=== PATIENT | female | born 1990 | race Caucasian/White ===

== ENCOUNTER 2016-08-06 07:21 | Emergency (ER) | payer SELFPAY ==
[2014-08-12 10:15] VITALS: BMI 23.6
[~2016-08-06 07:21] MED LIST: IBUPROFEN600 MG PO; PERCOCET 5-3251 TAB PO; PRENAVITE1 TAB PO
== END 2016-08-06 08:25 | disposition home or self-care (01) ==
LOC: D.ER 07:21
DX: J02.9 Acute pharyngitis, unspecified (principal)

== ENCOUNTER 2017-03-09 21:41 | Emergency (ER) | payer SELFPAY ==
[2014-08-12 10:15] VITALS: BMI 23.6
== END 2017-03-09 22:21 | disposition home or self-care (01) ==
LOC: D.ER 21:41
DX: K08.89 Other specified disorders of teeth and supporting structures (principal); K04.7 Periapical abscess without sinus

== ENCOUNTER 2017-04-29 12:50 | Emergency (ER) | payer SELFPAY ==
[2014-08-12 10:15] VITALS: BMI 23.6
[2017-04-29 15:04] LABS: UDS - AMPHET NEGATIVE QUAL (NEGATIVE); UDS - BARB NEGATIVE QUAL (NEGATIVE); UDS - BENZO NEGATIVE QUAL (NEGATIVE); UDS - COCAINE NEGATIVE QUAL (NEGATIVE); UDS - OPIATE POSITIVE QUAL (NEGATIVE); UDS - PCP NEGATIVE QUAL (NEGATIVE); UDS - THC POSITIVE QUAL (NEGATIVE)
== END 2017-04-29 16:26 | disposition home or self-care (01) ==
LOC: D.ER 12:50
PROVIDERS: Physician Assistant
DX: R11.2 Nausea with vomiting, unspecified (principal); F10.129 Alcohol abuse with intoxication, unspecified; F17.200 Nicotine dependence, unspecified, uncomplicated

== ENCOUNTER 2017-08-07 12:04 | Emergency (ER) | payer SELFPAY ==
[2014-08-12 10:15] VITALS: BMI 23.6
== END 2017-08-07 14:52 | disposition home or self-care (01) ==
LOC: D.ER 12:04
DX: S93.401A Sprain of unspecified ligament of right ankle, initial encounter (principal); W03.XXXA Other fall on same level due to collision with another person, initial encounter; Y93.89 Activity, other specified; Y92.019 Unspecified place in single-family (private) house as the place of occurrence of the external cause; F17.200 Nicotine dependence, unspecified, uncomplicated

== ENCOUNTER 2017-10-07 22:24 | Emergency (ER) | payer SELFPAY ==
[~2017-10-07] VITALS: Ht 160 cm; Wt 50.0 kg
[2017-10-07 22:53] VITALS: Ht 160 cm; Wt 50.0 kg
[2017-10-07 23:58] LABS: APPEARANCE CLEAR (CLEAR); BILIRUBIN NEGATIVE (NEGATIVE); COLOR YELLOW (YELLOW); GLUCOSE NEGATIVE (NEGATIVE); KETONE NEGATIVE (NEGATIVE); NITRITE NEGATIVE (NEGATIVE); PROTEIN NEGATIVE (NEGATIVE); UROBILINOGEN NORMAL (NORMAL)
[2017-10-08 00:04] LABS: HCG URINE NEGATIVE (NEGATIVE)
[2017-10-08] MEDS ORDERED: TORADOL10 MG PO (02:57)
[2017-10-08 03:02] VITALS: BP 122/78
== END 2017-10-08 03:04 | disposition home or self-care (01) ==
LOC: D.ER 22:24
PROVIDERS: Family Medicine
DX: S16.1XXA Strain of muscle, fascia and tendon at neck level, initial encounter (principal); Y93.39 Activity, other involving climbing, rappelling and jumping off; Y93.89 Activity, other specified; Y92.89 Other specified places as the place of occurrence of the external cause; S70.02XA Contusion of left hip, initial encounter; S70.12XA Contusion of left thigh, initial encounter; S29.012A Strain of muscle and tendon of back wall of thorax, initial encounter; F17.200 Nicotine dependence, unspecified, uncomplicated

== ENCOUNTER 2019-01-22 08:19 | Emergency (ER) | payer SELFPAY ==
[~2019-01-22] VITALS: Ht 160 cm; Wt 50.9 kg
[~2019-01-22 08:19] MED LIST changes: +TORADOL10 MG PO
[2019-01-22 08:23] VITALS: Ht 160 cm; Wt 50.9 kg
[2019-01-22 08:45] LABS: BASOPHILS 0.2 % (0-2); EOSINOPHILS 0.4 % (0-7); HEMATOCRIT 38.5 % (36.0-48.0); HEMOGLOBIN 12.2 g/dL (12-16); IMMATURE GRANULOCYTES 0.2 % (0-5); LYMPHOCYTES 10.2 % (15-50); MCH 27.7 pg (26.0-34.0); MCHC 31.7 g/dL (31.0-37.0); MCV 87.5 fL (80.0-100.0); MEAN PLATELET VOLUME 9.6 fL (7.4-10.4); PLATELET COUNT 301 10x3/uL (130-400); RDW 15.5 % (11.5-14.5); WBC 12.1 10x3/uL (4.8-10.8)
[2019-01-22] MEDS ORDERED: ACETAMINOPHEN500 M1 PO (08:47)
[2019-01-22] MEDS ORDERED: IBUPROFEN800 MG PO (08:47)
[2019-01-22] MEDS ORDERED: CYCLOBENZAPRINE10 MG PO (08:47)
[2019-01-22] MEDS ORDERED: ZOFRAN ODT4 MG/UDTAB PO (08:47)
[2019-01-22] MEDS ORDERED: KEFLEX500 MG PO (08:47)
[2019-01-22 09:00] LABS: ALBUMIN 3.8 g/dL (3.4-5.0); ALKALINE PHOSPHATASE 74 U/L (46-116); ALT (SGPT) 14 U/L (10-68); BILIRUBIN - TOTAL 0.38 mg/dL (0.2-1.3); CALC OSMOLALITY 271 mosm/kg (275-300); CALCIUM 8.5 mg/dL (8.5-10.1); CHLORIDE - SERUM 102 mmol/L (98-107); CREATININE - SERUM 0.8 mg/dL (0.6-1.3); GLUCOSE 104 mg/dL (74-106); POTASSIUM - SERUM 3.5 mmol/L (3.5-5.1); PROTEIN - SERUM 7.4 g/dL (6.4-8.2); SODIUM 137 mmol/L (136-145); UREA NITROGEN 8 mg/dL (7-18); eGFR NON AFRICAN AMERICAN > 90 mL/min (90-120)
[2019-01-22 09:25] VITALS: BP 129/77
== END 2019-01-22 09:22 | disposition home or self-care (01) ==
LOC: D.ER 08:19
PROVIDERS: Family Medicine
DX: K02.9 Dental caries, unspecified (principal); K04.7 Periapical abscess without sinus; K05.10 Chronic gingivitis, plaque induced

== ENCOUNTER 2019-02-15 10:34 | Emergency (ER) | payer SELFPAY ==
[~2019-02-15] VITALS: Ht 160 cm; Wt 68.2 kg
[~2019-02-15 10:34] MED LIST changes: +ACETAMINOPHEN500 M1 PO; +CYCLOBENZAPRINE10 MG PO; +IBUPROFEN800 MG PO; +KEFLEX500 MG PO; +ZOFRAN ODT4 MG/UDTAB PO
[2019-02-15 10:40] VITALS: BP 111/74; Ht 160 cm; Wt 68.2 kg
[2019-02-15] MEDS ORDERED: IBUPROFEN800 MG PO (12:23)
[2019-02-15] MEDS ORDERED: CYCLOBENZAPRINE10 MG PO (12:23)
[2019-02-15] MEDS ORDERED: ACETAMINOPHEN500 M1 PO (12:23)
== END 2019-02-15 13:42 | disposition home or self-care (01) ==
LOC: D.ER 10:34
DX: M23.91 Unspecified internal derangement of right knee (principal); X50.1XXA Overexertion from prolonged static or awkward postures, initial encounter

== ENCOUNTER 2019-09-14 22:08 | Emergency (ER) | payer SELFPAY ==
[~2019-09-14] VITALS: Ht 160 cm; Wt 51.3 kg
[~2019-09-14 22:08] MED LIST changes: +XOFLUZA40 MG PO
[2019-09-14 22:15] VITALS: Ht 160 cm; Wt 51.3 kg
[2019-09-14 22:36] LABS: BASOPHILS 0.5 % (0-2); EOSINOPHILS 0.5 % (0-7); HEMATOCRIT 39.5 % (36.0-48.0); HEMOGLOBIN 12.2 g/dL (12-16); IMMATURE GRANULOCYTES 0.1 % (0-5); LYMPHOCYTES 21.9 % (15-50); MCH 25.8 pg (26.0-34.0); MCHC 30.9 g/dL (31.0-37.0); MCV 83.5 fL (80.0-100.0); MONOCYTES 10.5 % (2-11); NEUTROPHILS 66.5 % (40-80); PLATELET COUNT 315 10x3/uL (130-400); RBC 4.73 10x6/uL (4.00-5.40); RDW 16.4 % (11.5-14.5)
[2019-09-14 22:43] LABS: HCG URINE NEGATIVE (NEGATIVE)
[2019-09-14 22:44] LABS: ANION GAP 11.8 mmol/L (8-16); BACTERIA FEW /hpf (NEGATIVE); BILIRUBIN NEGATIVE (NEGATIVE); CARBON DIOXIDE 27.4 mmol/L (21.0-32.0); GLUCOSE NEGATIVE (NEGATIVE); KETONE NEGATIVE (NEGATIVE); NITRITE NEGATIVE (NEGATIVE); POTASSIUM - SERUM 3.2 mmol/L (3.5-5.1); RED CELLS - URINE 0-5 /hpf (0-5); SPECIFIC GRAVITY 1.015 (1.005-1.020); UROBILINOGEN NORMAL (NORMAL); WHITE CELLS - URINE 0-5 /hpf (NEGATIVE)
[2019-09-14 22:51] LABS: ALBUMIN 4.3 g/dL (3.4-5.0); BILIRUBIN - TOTAL 0.3 mg/dL (0.2-1.3); PROTEIN - SERUM 8.3 g/dL (6.4-8.2)
[2019-09-14] MEDS ORDERED: ZOFRAN ODT4 MG/UDTAB PO (23:31)
[2019-09-14] MEDS ORDERED: VOLTAREN75 MG PO (23:31)
[2019-09-14] MEDS ORDERED: AUGMENTIN 875-11 TAB PO (23:55)
[2019-09-15 00:05] VITALS: BP 132/85
== END 2019-09-15 00:09 | disposition home or self-care (01) ==
LOC: D.ER 22:08
PROVIDERS: Family Medicine
DX: R51 Headache (principal); Y04.1XXA Assault by human bite, initial encounter; Y93.9 Activity, unspecified; Y92.9 Unspecified place or not applicable; J45.909 Unspecified asthma, uncomplicated; Z72.0 Tobacco use; R11.2 Nausea with vomiting, unspecified

== ENCOUNTER 2019-11-30 10:38 | Emergency (ER) | payer SELFPAY ==
[~2019-11-30] VITALS: Ht 160 cm; Wt 52.3 kg
[~2019-11-30 10:38] MED LIST changes: +AUGMENTIN 875-11 TAB PO; +VOLTAREN75 MG PO
[2019-11-30 10:41] VITALS: Ht 160 cm; Wt 52.3 kg
[2019-11-30 10:59] LABS: BASOPHILS 0.5 % (0-2); EOSINOPHILS 0.9 % (0-7); HEMATOCRIT 40.1 % (36.0-48.0); HEMOGLOBIN 12.6 g/dL (12-16); IMMATURE GRANULOCYTES 0.2 % (0-5); LYMPHOCYTES 35.7 % (15-50); MCHC 31.4 g/dL (31.0-37.0); MCV 82.9 fL (80.0-100.0); MEAN PLATELET VOLUME 9.4 fL (7.4-10.4); MONOCYTES 6.3 % (2-11); NEUTROPHILS 56.4 % (40-80); PLATELET COUNT 318 10x3/uL (130-400); RBC 4.84 10x6/uL (4.00-5.40); RDW 16.7 % (11.5-14.5); WBC 5.7 10x3/uL (4.8-10.8)
[2019-11-30 11:09] LABS: CALC OSMOLALITY 275 mosm/kg (275-300); CALCIUM 8.8 mg/dL (8.5-10.1); CARBON DIOXIDE 19.6 mmol/L (21.0-32.0); CHLORIDE - SERUM 105 mmol/L (98-107); GLUCOSE 94 mg/dL (74-106); POTASSIUM - SERUM 3.5 mmol/L (3.5-5.1); SODIUM 139 mmol/L (136-145); UREA NITROGEN 8 mg/dL (7-18); eGFR NON AFRICAN AMERICAN 70 mL/min (90-120)
[2019-11-30 11:25] LABS: ALBUMIN 3.9 g/dL (3.4-5.0); ALKALINE PHOSPHATASE 74 U/L (30-120); ALT (SGPT) 17 U/L (10-68); BILIRUBIN - TOTAL 0.12 mg/dL (0.2-1.3); CKMB 0.2 U/L (0.0-3.6); CREATINE KINASE 55 UL (21-215); PRO BNP 60 pg/mL (0-125); TROPONIN-I < 0.017 ng/mL (0.000-0.060)
[2019-11-30 11:36] LABS: APTT 23.2 SECONDS (22.8-39.4); INR 0.92 (0.85-1.17); PROTIME 12.3 SECONDS (11.6-15.0)
[2019-11-30] MEDS ORDERED: PREDNISONE50 MG PO (12:16)
[2019-11-30] MEDS ORDERED: VENTOLIN HFA [SP8 GM INH (12:18)
[2019-11-30 13:39] VITALS: BP 122/83
== END 2019-11-30 13:40 | disposition home or self-care (01) ==
LOC: D.ER 10:38
PROVIDERS: Family Medicine
DX: J45.901 Unspecified asthma with (acute) exacerbation (principal)

== ENCOUNTER 2020-01-12 00:46 | Emergency (ER) | payer SELFPAY ==
[~2020-01-12] VITALS: Ht 160 cm; Wt 52.3 kg
[~2020-01-12 00:46] MED LIST changes: +PREDNISONE50 MG PO; +VENTOLIN HFA [SP8 GM INH
[2020-01-12 00:49] VITALS: Ht 160 cm; Wt 52.3 kg
[2020-01-12 01:10] VITALS: BP 128/85
[2020-01-12] MEDS ORDERED: HYDROCODON-ACE1 EAC7 PO (01:43)
[2020-01-12] MEDS ORDERED: AUGMENTIN 875-11 TAB PO (01:43)
== END 2020-01-12 01:10 | disposition home or self-care (01) ==
LOC: D.ER 00:46
DX: S81.851A Open bite, right lower leg, initial encounter (principal); S61.451A Open bite of right hand, initial encounter; W54.0XXA Bitten by dog, initial encounter; Y93.9 Activity, unspecified; Y92.9 Unspecified place or not applicable; J45.909 Unspecified asthma, uncomplicated; Z72.0 Tobacco use

== ENCOUNTER 2020-01-15 16:20 | Emergency (ER) | payer SELFPAY ==
[~2020-01-15] VITALS: Ht 160 cm; Wt 50.9 kg
[~2020-01-15 16:20] MED LIST changes: +HYDROCODON-ACE1 EAC7 PO
[2020-01-15 16:38] VITALS: Ht 160 cm; Wt 50.9 kg
[2020-01-15] MEDS ORDERED: VOLTAREN75 MG PO (17:48)
[2020-01-15] MEDS ORDERED: ZOFRAN ODT4 MG/UDTAB PO (17:48)
[2020-01-15 18:50] VITALS: BP 110/70
== END 2020-01-15 18:51 | disposition home or self-care (01) ==
LOC: D.ER 16:20
DX: S71.151A Open bite, right thigh, initial encounter (principal); L03.115 Cellulitis of right lower limb; W54.0XXA Bitten by dog, initial encounter; Y93.9 Activity, unspecified; Y92.9 Unspecified place or not applicable; J45.909 Unspecified asthma, uncomplicated; Z72.0 Tobacco use

== ENCOUNTER 2020-08-22 14:36 | Emergency (ER) | payer SELFPAY ==
[~2020-08-22] VITALS: Ht 160 cm; Wt 52.3 kg
[~2020-08-22 14:36] MED LIST changes: +OMEPRAZOLE40 MG PO; +ZOFRAN4 MG PO
[2020-08-22 14:45] VITALS: Ht 160 cm; Wt 52.3 kg
[2020-08-22 15:46] LABS: BASOPHILS 0.5 % (0-2); HEMATOCRIT 38.1 % (36.0-48.0); HEMOGLOBIN 11.9 g/dL (12-16); IMMATURE GRANULOCYTES 0.1 % (0-5); LYMPHOCYTE ABS# 1.35 10x3/uL (1.18-3.74); LYMPHOCYTES 18.4 % (15-50); MCH 24.8 pg (26.0-34.0); MCHC 31.2 g/dL (31.0-37.0); MCV 79.4 fL (80.0-100.0); MEAN PLATELET VOLUME 9.9 fL (7.4-10.4); MONOCYTES 5.5 % (2-11); NEUTROPHIL ABS# 5.46 10x3/uL (1.56-6.13); NEUTROPHILS 74.5 % (40-80); PLATELET COUNT 389 10x3/uL (130-400); RDW 16.5 % (11.5-14.5); WBC 7.3 10x3/uL (4.8-10.8)
[2020-08-22 15:49] LABS: HCG URINE NEGATIVE (NEGATIVE)
[2020-08-22 15:57] LABS: BILIRUBIN NEGATIVE (NEGATIVE); KETONE NEGATIVE (NEGATIVE); NITRITE NEGATIVE (NEGATIVE); UROBILINOGEN NORMAL mg/dL (< 2)
[2020-08-22 16:00] LABS: CALC OSMOLALITY 276 mosm/kg (275-300); CALCIUM 9.5 mg/dL (8.5-10.1); CHLORIDE - SERUM 104 mmol/L (98-107); CREATININE - SERUM 0.8 mg/dL (0.6-1.3); GLUCOSE 85 mg/dL (74-106); POTASSIUM - SERUM 4.1 mmol/L (3.5-5.1); SODIUM 140 mmol/L (136-145); UREA NITROGEN 11 mg/dL (7-18); eGFR NON AFRICAN AMERICAN 90 mL/min (90-120)
[2020-08-22 16:03] LABS: ALBUMIN 4.2 g/dL (3.4-5.0); ALKALINE PHOSPHATASE 74 U/L (30-120); ALT (SGPT) 17 U/L (10-68); PROTEIN - SERUM 8.2 g/dL (6.4-8.2)
[2020-08-22 16:07] LABS: UDS - AMPHET NEGATIVE QUAL (NEGATIVE); UDS - BARB NEGATIVE QUAL (NEGATIVE); UDS - BENZO NEGATIVE QUAL (NEGATIVE); UDS - COCAINE NEGATIVE QUAL (NEGATIVE); UDS - OPIATE POSITIVE QUAL (NEGATIVE); UDS - PCP NEGATIVE QUAL (NEGATIVE); UDS - THC POSITIVE QUAL (NEGATIVE)
[2020-08-22 16:38] VITALS: BP 112/74
== END 2020-08-22 16:40 | disposition home or self-care (01) ==
LOC: D.ER 14:36
PROVIDERS: Family Medicine
DX: R42 Dizziness and giddiness (principal); T50.905A Adverse effect of unspecified drugs, medicaments and biological substances, initial encounter; J45.909 Unspecified asthma, uncomplicated; Z72.0 Tobacco use